=== PATIENT | male | born 1985 ===

== ENCOUNTER → 2020-11-26 | Outpatient (REF) | payer OTHER ==
[2020-11-26 15:52] LABS: SEMEN APPEARANCE OPAQUE (OPAQUE); SEMEN VOLUME 1.6 ml (2.0-5.0)
[2020-11-26 15:53] LABS: SEMEN VISCOSITY LIQUID (LIQUID); WBC CONCENTRATION <=1 M/ml (<=1 M/ml)
== END ==
LOC: M LAB REF 15:10
PROVIDERS: ATTEND Preventive Medicine Undersea and Hyperbaric Medicine
DX: Z30.2 Encounter for sterilization (principal)